=== PATIENT | male | born 2000 | race African-American/Black ===

== ENCOUNTER 2018-03-04 22:41 | Emergency (ER) | payer BC ==
[~2018-03-04] VITALS: Ht 193 cm; Wt 97.7 kg
[2018-03-04 22:42] VITALS: Ht 193 cm; Wt 97.7 kg
[2018-03-04 23:00] LABS: APPEARANCE CLEAR (CLEAR); BILIRUBIN NEGATIVE (NEGATIVE); COLOR YELLOW (YELLOW); GLUCOSE NEGATIVE (NEGATIVE); KETONE NEGATIVE (NEGATIVE); NITRITE NEGATIVE (NEGATIVE); PROTEIN NEGATIVE (NEGATIVE); UROBILINOGEN NORMAL (NORMAL)
[2018-03-04 23:07] LABS: UDS - AMPHET NEGATIVE QUAL (NEGATIVE); UDS - BARB NEGATIVE QUAL (NEGATIVE); UDS - BENZO NEGATIVE QUAL (NEGATIVE); UDS - COCAINE NEGATIVE QUAL (NEGATIVE); UDS - OPIATE NEGATIVE QUAL (NEGATIVE); UDS - PCP NEGATIVE QUAL (NEGATIVE); UDS - THC NEGATIVE QUAL (NEGATIVE)
[2018-03-04 23:15] LABS: BASOPHILS 0.2 % (0-2); EOSINOPHILS 0.1 % (0-7); HEMATOCRIT 41.2 % (42.0-54.0); HEMOGLOBIN 13.6 g/dL (13.5-17.5); IMMATURE GRANULOCYTES 0.3 % (0-5); LYMPHOCYTES 21.1 % (15-50); MCH 25.7 pg (26.0-34.0); MCV 77.7 fL (80.0-100.0); MEAN PLATELET VOLUME 10.3 fL (7.4-10.4); MONOCYTES 9.7 % (2-11); NEUTROPHILS 68.6 % (40-80); PLATELET COUNT 300 10x3/uL (130-400); RDW 14.7 % (11.5-14.5); WBC 15.5 10x3/uL (4.8-10.8)
[2018-03-04 23:27] LABS: ALBUMIN 4.1 g/dL (3.4-5.0); ALKALINE PHOSPHATASE 75 U/L (46-116); ALT (SGPT) 23 U/L (10-68); BILIRUBIN - TOTAL 0.43 mg/dL (0.2-1.3); CALC OSMOLALITY 277 mosm/kg (275-300); CALCIUM 9.2 mg/dL (8.5-10.1); CARBON DIOXIDE 26.3 mmol/L (21.0-32.0); CHLORIDE - SERUM 102 mmol/L (98-107); CREATININE - SERUM 1.6 mg/dL (0.6-1.3); GLUCOSE 85 mg/dL (74-106); POTASSIUM - SERUM 3.9 mmol/L (3.5-5.1); PROTEIN - SERUM 7.7 g/dL (6.4-8.2); SODIUM 139 mmol/L (136-145); UREA NITROGEN 16 mg/dL (7-18); eGFR NON AFRICAN AMERICAN 59 mL/min (90-120)
[2018-03-04 23:45] LABS: LIPASE 93 U/L (73-393)
[2018-03-04 23:46] VITALS: BP 127/85
[2018-03-04 23:48] LABS: CKMB 2.6 U/L (0.0-3.6); CREATINE KINASE 1916 UL (21-232)
== END 2018-03-04 23:46 | disposition home or self-care (01) ==
LOC: D.ER 22:41
PROVIDERS: Family Medicine
DX: R55 Syncope and collapse (principal); N28.9 Disorder of kidney and ureter, unspecified